=== PATIENT | female | born 2000 | race Caucasian/White ===

== ENCOUNTER 2019-02-18 05:06 | Emergency (ER) | payer BC, MEDICAID, OTHER, SELFPAY ==
[~2019-02-18] VITALS: Ht 165.1 cm; Wt 86.5 kg
[2019-02-18] MEDS ORDERED: ALBUTEROL/IPRATROPIUM 2.5MG/0.5MG, 3 ML NPPB ONE (05:30)
[2019-02-18] MEDS ORDERED: ALBUTEROL/IPRATROPIUM 2.5MG/0.5MG, 3 ML ONE (05:35)
--- NOTE | 2019-02-18 05:40 | NUR ---
RN to bedside with steroidal antiinflammatory medication. Patient is alert, oriented, breathing is rapid and shallow. RN appreciate expiratory wheezes at the end of inhallation. Respiratory therapist to bedside as RN adminstered medications. Will updated clinical screen when respiratory therapist is finished.
--- NOTE | 2019-02-18 05:48 | NUR ---
RN to bedside, patient finished breathing treatment. No longer on supplemental oxygen. Wheezing gone after breathing treatment. Will return in half an hour to update vitals.
--- NOTE | 2019-02-18 06:50 | NUR ---
REPORT RECEIVED FROM JOSÉ CAMARGO. CARE ASSUMED AT THIS TIME.
--- NOTE | 2019-02-18 07:25 | NUR ---
RECEIVED REPORT FROM NANCI
--- NOTE | 2019-02-18 07:26 | NUR ---
REPORT GIVEN TO JOSÉ SCHMIDT. CARE TRANSFERRED.
[2019-02-18 07:57] VITALS: BP 110/61
--- NOTE | 2019-02-18 07:57 | NUR ---
PT UPRIGHT ON GURNEY AWAKE & COMFORTABLE, RESPONDS APPROP TO STAFF, NAD & DENIES PAIN, COMFORT MEASURES PROVIDED, FRIEND AT BS, CALL LIGHT WITHIN REACH.
--- NOTE | 2019-02-18 08:48 | NUR ---
Patient given discharge instructions and Rx, they have confirmed that they understand the instructions. Patient ambulatory with steady gait.
== END 2019-02-18 08:49 | disposition home or self-care (01) ==
LOC: ED 08:30
DX: J45.901 Unspecified asthma with (acute) exacerbation (principal); F17.210 Nicotine dependence, cigarettes, uncomplicated
CPT/HCPCS: 71046; 93005; 94640; 99283; 99406; J7512; J7620